=== PATIENT | female | born 1985 | race Caucasian/White ===

== ENCOUNTER 2017-10-16 14:37 | Emergency (ER) | payer OTHER ==
[2017-10-16] MEDS: PERCOCET 5MG/325MG TAB PO (15:18)
== END 2017-10-16 16:07 | disposition home or self-care (01) ==
LOC: M ED 14:37
DX: N83.201 Unspecified ovarian cyst, right side (principal)
CPT/HCPCS: Q9963

== ENCOUNTER → 2017-10-16 | Outpatient (CLI) | payer OTHER ==
[~2017-10-16] MED LIST: GASTROGRAFIN SOLUTION 30ML (Q9963) As Ordered ONE; ISOVUE-370 76% 100ML VIAL (Q9967) As Ordered ONE; MOTR200T44 PO; PERC5TAB12 PO; ZOFR4TAB3 PO
[2017-10-16 10:27] LABS: BASO % 0.4 % (0.0-1.0); EOS % 0.5 % (0.0-3.0); IMMATURE GRANULOCYTE % 0.3 % (0-0); LYMPH # 1.7 10^3/uL (1.5-4.5); LYMPH % 22.2 % (24.0-44.0); MEAN CORPUSCULAR HEMOGLOBIN 30.6 pg (27.0-33.0); MEAN CORPUSCULAR HGB CONC 33.3 g/dl (32.0-36.5); MEAN CORPUSCULAR VOLUME 91.9 fl (80.0-96.0); MONO # 0.4 10^3/uL (0.0-0.8); MONO % 5.2 % (0.0-5.0); NEUTROPHILS # 5.6 10^3/uL (1.8-7.7); NEUTROPHILS % 71.4 % (36.0-66.0); PLATELET COUNT, AUTOMATED 284 10^3/uL (150-450); RED CELL DISTRIBUTION WIDTH 12.4 % (11.5-14.5); WHITE BLOOD COUNT 7.9 10^3/uL (4.0-10.0)
[2017-10-16 11:09] LABS: ALBUMIN 4.8 GM/DL (3.2-5.2); ALBUMIN/GLOBULIN RATIO 1.71 (1.00-1.93); ALKALINE PHOSPHATASE 50 U/L (45-117); ALT/SGPT 18 U/L (12-78); ANION GAP 7 MEQ/L (8-16); AST/SGOT 18 U/L (7-37); BILIRUBIN,TOTAL 0.5 MG/DL (0.2-1.0); BLOOD UREA NITROGEN 13 MG/DL (7-18); CARBON DIOXIDE LEVEL 28 MEQ/L (21-32); CHLORIDE LEVEL 104 MEQ/L (98-107); CREATININE FOR GFR 0.61 MG/DL (0.55-1.02); GLOMERULAR FILTRATION RATE > 60.0 (>60); GLUCOSE, FASTING 99 MG/DL (70-105); POTASSIUM SERUM 4.3 MEQ/L (3.5-5.1); SODIUM LEVEL 139 MEQ/L (136-145); TOTAL PROTEIN 7.6 GM/DL (6.4-8.2)
--- NOTE | 2017-10-16 11:50 | REP ---
Clinical: Acute right lower quadrant pain. Technique: Axial contrast enhanced images from the lung bases to the pubic symphysis using oral (per protocol) and 100 ml Isovue 370 intravenous contrast material with coronal and sagittal re-formations. Findings: Small to moderate amount of free fluid is identified in the pelvis along with partially rim enhancing presumed right ovarian cyst suggesting ruptured ovarian cyst likely related to patient's symptoms. The uterus and left adnexa appear normal. Liver, spleen, pancreas, gallbladder, bilateral adrenal glands and kidneys are normal. The enteric system demonstrates fecal stasis without obstruction or acute inflammatory process. Normal terminal ileum and appendix are identified in the right lower quadrant without evidence for acute appendicitis. Pelvis demonstrates normal bladder and uterus/left adnexa. Presumed ruptured right ovarian cyst as described above. No free air. No adenopathy. Abdominal aorta and vasculature normal. Surrounding musculoskeletal structures are intact. Lung bases are clear. Impression: 1. Findings suggest ruptured right ovarian cyst with small to moderate amount of free fluid in the pelvis. 2. Normal appendix. Signed by Carlos Lee MD 10/16/2017 11:40 A
== END ==
LOC: EDBD → M RAD 09:36
PROVIDERS: ATTEND Physician Assistant
DX: R10.813 Right lower quadrant abdominal tenderness (principal)

== ENCOUNTER → 2017-11-21 | Outpatient (REF) | payer OTHER ==
[2017-11-21 15:49] LABS: INFLUENZA A AMPLIFICATION NEGATIVE (NEGATIVE); INFLUENZA B AMPLIFICATION NEGATIVE (NEGATIVE); RSV AMPLIFICATION NEGATIVE (NEGATIVE)
== END ==
LOC: M LAB REF 14:52
DX: J11.1 Influenza due to unidentified influenza virus with other respiratory manifestations (principal)
CPT/HCPCS: 87631

== ENCOUNTER 2017-12-02 20:37 | Emergency (ER) | payer OTHER ==
[2017-12-02 22:38] LABS: BASO % 0.2 % (0.0-1.0); EOS % 0.3 % (0.0-3.0); HEMATOCRIT 35.6 % (36.0-47.0); HEMOGLOBIN 12.2 g/dl (12.0-16.0); IMMATURE GRANULOCYTE % 0.2 % (0-3.0); LYMPH # 1.5 10^3/uL (1.5-4.5); LYMPH % 22.9 % (24.0-44.0); MEAN CORPUSCULAR HEMOGLOBIN 30.7 pg (27.0-33.0); MEAN CORPUSCULAR HGB CONC 34.3 g/dl (32.0-36.5); MEAN CORPUSCULAR VOLUME 89.4 fl (80.0-96.0); MONO # 0.9 10^3/uL (0.0-0.8); MONO % 14.6 % (0.0-5.0); NEUTROPHILS % 61.8 % (36.0-66.0); PLATELET COUNT, AUTOMATED 214 10^3/uL (150-450); RED BLOOD COUNT 3.98 10^6/uL (4.00-5.40); RED CELL DISTRIBUTION WIDTH 12.3 % (11.5-14.5); WHITE BLOOD COUNT 6.5 10^3/uL (4.0-10.0)
[2017-12-02 22:40] LABS: INFLUENZA A AMPLIFICATION POSITIVE (NEGATIVE); INFLUENZA B AMPLIFICATION NEGATIVE (NEGATIVE)
[2017-12-02] MEDS: NS 1,000 ML IV ×2 (22:47→23:45)
[2017-12-02] MEDS: ONDANSETRON 4MG/2ML VIAL (J2405) IV (22:47)
[2017-12-02] MEDS: dexameTHASONE 20 MG/5 ML VIAL (J1100) IV (22:47)
[2017-12-02 23:04] LABS: ANION GAP 9 MEQ/L (8-16); BLOOD UREA NITROGEN 9 MG/DL (7-18); CALCIUM LEVEL 8.8 MG/DL (8.5-10.1); CARBON DIOXIDE LEVEL 26 MEQ/L (21-32); CHLORIDE LEVEL 111 MEQ/L (98-107); CREATININE FOR GFR 0.67 MG/DL (0.55-1.30); GLOMERULAR FILTRATION RATE > 60.0 (>60); GLUCOSE, FASTING 116 MG/DL (70-100); POTASSIUM SERUM 3.5 MEQ/L (3.5-5.1); SODIUM LEVEL 146 MEQ/L (136-145)
[2017-12-02] MEDS: ALBUTEROL SULFATE 2.5 MG/0.5 ML INH NEB SOLN NEB (23:06)
[2017-12-02] MEDS: guaiFENesin/CODEINE SYRUP 5 ML UDC PO (23:43)
[2017-12-02] MEDS: BENZONATATE 100 MG CAP PO (23:43)
== END 2017-12-03 01:03 | disposition home or self-care (01) ==
LOC: M ED 12-03 01:03
DX: J09.X2 Influenza due to identified novel influenza A virus with other respiratory manifestations (principal)
CPT/HCPCS: J1100

== ENCOUNTER 2018-06-08 11:10 | Outpatient (CLI) | payer OTHER ==
[2018-06-08] MEDS: FIORICET TAB PO (12:10)
[2018-06-08] MEDS: ACETAMINOPHEN 500 MG TAB PO (13:49)
[2018-06-08] MEDS: KETOROLAC 30 MG/ML VIAL (J1885) IV (16:39)
[2018-06-08 16:59] LABS: HEMATOCRIT 37.7 % (36.0-47.0); HEMOGLOBIN 12.9 g/dl (12.0-15.5); MEAN CORPUSCULAR HEMOGLOBIN 30.6 pg (27.0-33.0); MEAN CORPUSCULAR HGB CONC 34.2 g/dl (32.0-36.5); MEAN CORPUSCULAR VOLUME 89.3 fl (80.0-96.0); PLATELET COUNT, AUTOMATED 240 10^3/uL (150-450); RED BLOOD COUNT 4.22 10^6/uL (4.00-5.40); RED CELL DISTRIBUTION WIDTH 13.2 % (11.5-14.5); WHITE BLOOD COUNT 12.3 10^3/uL (4.0-10.0)
[2018-06-08 17:18] LABS: ALBUMIN/GLOBULIN RATIO 0.91 (1.00-1.93); ALKALINE PHOSPHATASE 80 U/L (45-117); ALT/SGPT 23 U/L (12-78); ANION GAP 11 MEQ/L (8-16); AST/SGOT 19 U/L (7-37); BILIRUBIN,TOTAL 0.2 MG/DL (0.2-1.0); BLOOD UREA NITROGEN 8 MG/DL (7-18); CALCIUM LEVEL 8.9 MG/DL (8.5-10.1); CARBON DIOXIDE LEVEL 24 MEQ/L (21-32); CHLORIDE LEVEL 106 MEQ/L (98-107); CREATININE FOR GFR 0.41 MG/DL (0.55-1.30); GLOMERULAR FILTRATION RATE > 60.0 (>60); GLUCOSE, FASTING 82 MG/DL (70-100); POTASSIUM SERUM 3.7 MEQ/L (3.5-5.1); SODIUM LEVEL 141 MEQ/L (136-145); TOTAL PROTEIN 6.3 GM/DL (6.4-8.2)
[2018-06-08] MEDS: MAG SULF 1GM/100ML (MAG RUN) 1 GM in APPROPRIATE DILUENT 1 EA IV (18:46)
== END 2018-06-08 20:57 | disposition home or self-care (01) ==
LOC: M LDO 11:10
DX: O99.89 Other specified diseases and conditions complicating pregnancy, childbirth and the puerperium (principal); Z3A.31 31 weeks gestation of pregnancy; O99.353 Diseases of the nervous system complicating pregnancy, third trimester; G43.909 Migraine, unspecified, not intractable, without status migrainosus; R42 Dizziness and giddiness; R11.0 Nausea
CPT/HCPCS: J3475

== ENCOUNTER 2018-08-07 09:42 | Inpatient (IN) | payer OTHER ==
[2018-08-07] MEDS: PRENATAL VITAMINS CHEWABLE TABLET PO (09:00)
[2018-08-07] MEDS ORDERED: FENTANYL 2MCG/ML ROPIVACAINE 0.2% IN 0.9% NACL 200ML IVBAG As Ordered (10:21)
[2018-08-07] MEDS: LACTATED RINGER'S 1000 ML IV (10:30)
[2018-08-07 10:38] LABS: HEMATOCRIT 37.8 % (36.0-47.0); HEMOGLOBIN 13.3 g/dl (12.0-15.5); MEAN CORPUSCULAR HEMOGLOBIN 30.4 pg (27.0-33.0); MEAN CORPUSCULAR HGB CONC 35.2 g/dl (32.0-36.5); MEAN CORPUSCULAR VOLUME 86.3 fl (80.0-96.0); PLATELET COUNT, AUTOMATED 235 10^3/uL (150-450); RED BLOOD COUNT 4.38 10^6/uL (4.00-5.40); RED CELL DISTRIBUTION WIDTH 12.7 % (11.5-14.5); WHITE BLOOD COUNT 11.9 10^3/uL (4.0-10.0)
[2018-08-07] MEDS: FENTANYL/ROPIVACAINE/NACL BAG 200 ML EPIDURAL (11:06)
[2018-08-07] MEDS ORDERED: ePHEDrine SULFATE 25 MG/5 ML(5MG/ML) SYRINGE IV (11:30)
[2018-08-07] MEDS ORDERED: EPIDURAL COMMENT XX (11:30)
[2018-08-07] MEDS ORDERED: EPIDURAL/PCA KEYS XX (11:30)
[2018-08-07] MEDS ORDERED: REFRIGERATOR IV KEYS XX (11:30)
[2018-08-07] MEDS ORDERED: LACTATED RINGER'S 1000 ML IV (11:30)
[2018-08-07] MEDS ORDERED: diphenhydrAMINE INJ 50MG/ML VIAL (J1200) IV (11:30)
[2018-08-07] MEDS: LR 1,000 ML IV (11:30)
[2018-08-07] MEDS ORDERED: NALOXONE INJ 0.4 MG/1 ML VIAL (J2310) IV (11:30)
[2018-08-07] MEDS: ONDANSETRON 4MG/2ML VIAL (J2405) IV (12:37)
[2018-08-07] MEDS: OXYTOCIN INJ 10 UNITS/ML VIAL (J2590) IV (13:46)
[2018-08-07] MEDS: OXYTOCIN DRIP 30 UNITS in APPROPRIATE DILUENT 1 EA IV (13:51)
[2018-08-07 13:57] LABS: CORD GAS HCO3 A 24.2 MEQ/L; CORD GAS O2 SAT A 18.7 %; CORD GAS PCO2 A 55.6 mmHg; CORD GAS PH A 7.256 UNITS; CORD GAS PO2 A 14.3 mmHg; CORD GAS SBC A 19.2 MEQ/L; CORD GAS TCO2 A 25.9 MEQ/L
[2018-08-07 14:00] LABS: CORD GAS ABE V -3.3; CORD GAS HCO3 V 18.9 MEQ/L; CORD GAS O2 SAT V 76.7 %; CORD GAS PCO2 V 27.7 mmHg; CORD GAS PH V 7.452 UNITS; CORD GAS PO2 V 32.2 mmHg; CORD GAS SBC V 21.2 MEQ/L; CORD GAS TCO2 V 19.8 MEQ/L
[2018-08-07] MEDS ORDERED: DOCUSATE SODIUM 100 MG CAP PO (14:15)
[2018-08-07] MEDS ORDERED: METHYLERGONOVINE MALEATE 0.2 MG TAB PO (14:15)
[2018-08-07] MEDS ORDERED: DIBUCAINE 1% OINTMENT 30GM TOP (14:15)
[2018-08-07] MEDS ORDERED: MOM 30ML SUSPENSION UDC PO (14:15)
[2018-08-07] MEDS: IBUPROFEN 800 MG TAB PO (16:11)
[2018-08-07] MEDS: RHOGAM 300 MCG (1500 IU) INJ (J2790) IM (16:20)
[2018-08-07] MEDS: MEASLES,MUMPS,RUBELLA VACCINE INJ (MMR-II) (90707) SC (16:21)
[2018-08-08] MEDS: IBUPROFEN 800 MG TAB PO (05:20)
[2018-08-08 06:22] LABS: HEMATOCRIT 36.9 % (36.0-47.0); HEMOGLOBIN 12.3 g/dl (12.0-15.5); MEAN CORPUSCULAR HEMOGLOBIN 30.1 pg (27.0-33.0); MEAN CORPUSCULAR HGB CONC 33.3 g/dl (32.0-36.5); MEAN CORPUSCULAR VOLUME 90.4 fl (80.0-96.0); PLATELET COUNT, AUTOMATED 195 10^3/uL (150-450); RED BLOOD COUNT 4.08 10^6/uL (4.00-5.40); RED CELL DISTRIBUTION WIDTH 13.1 % (11.5-14.5); WHITE BLOOD COUNT 12.7 10^3/uL (4.0-10.0)
[2018-08-08] MEDS: PRENATAL VITAMINS CHEWABLE TABLET PO (08:32)
[2018-08-08] MEDS: ANUSOL HC CREAM 30GM TOP (08:32)
[2018-08-08] MEDS: ACETAMINOPHEN 500 MG TAB PO (10:43)
== END 2018-08-08 15:00 | disposition home or self-care (01) | DRG 775 ==
LOC: M LDO 09:42 → M LDI 10:05 → M OBS 15:28
PROVIDERS: Obstetrics & Gynecology
PROC: 10E0XZZ Delivery of Products of Conception, External Approach (ICD-10-PCS; principal; 2018-08-07)
PROC: 0HQ9XZZ Repair Perineum Skin, External Approach (ICD-10-PCS; 2018-08-07)
DX: O70.0 First degree perineal laceration during delivery (principal); Z37.0 Single live birth; Z3A.39 39 weeks gestation of pregnancy

== ENCOUNTER → 2018-08-07 | Outpatient (CLI) | payer OTHER ==
[~2018-08-07] MED LIST changes: -GASTROGRAFIN SOLUTION 30ML (Q9963) As Ordered ONE; -ISOVUE-370 76% 100ML VIAL (Q9967) As Ordered ONE; -MOTR200T44 PO; +OXYTOCIN 30 UNITS IN 0.9% NaCl 500ML IV BAG (J2590) As Ordered; +OXYTOCIN INJ 10 UNITS/ML VIAL (J2590) As Ordered; -PERC5TAB12 PO; -ZOFR4TAB3 PO
== END ==
LOC: M LDO 04:06
DX: O26.893 Other specified pregnancy related conditions, third trimester (principal); Z3A.39 39 weeks gestation of pregnancy